=== PATIENT | female | born 1965 | race Caucasian/White ===

== ENCOUNTER 2022-02-08 03:38 | Inpatient (IN) ==
[2022-02-08] MEDS ORDERED: Ondansetron 4 MG/2 ML VIAL IVP PRN (08:32)
[2022-02-08] MEDS ORDERED: Naloxone 0.4 MG/ML INJ IVP PRN (08:32)
[2022-02-08] MEDS ORDERED: Perflutren Lipid Microsphere 1.3 ML in 0.9 % Sodium Chloride 8.7 ML IVP PRN (08:34)
[2022-02-08] MEDS ORDERED: Nitroglycerin 0.4 MG TAB.SUBL SL PRN (08:34)
[2022-02-08] MEDS ORDERED: *HR* Heparin 5,000 UNIT/ML VIAL IVP PRN (08:38)
[2022-02-08 09:05] LABS: Basophils # 0.1 K/mcL (0.0-0.2); Eosinophils # 0.2 K/mcL (0.0-0.6); Eosinophils % 2.5 %; Hematocrit 34.1 % (35.3-44.9); Hemoglobin 11.5 g/dL (11.5-15.4); Immature Granulocytes % 0.4 % (0-4); Lymphocytes # 2.1 K/mcL (0.6-4.6); Lymphocytes % 25.2 %; Mean Corpuscular HGB Conc 33.7 g/dL (31.6-35.5); Mean Corpuscular Hemoglobin 31.5 pg (28.0-33.3); Mean Corpuscular Volume 93.4 fL (83.0-100.0); Mean Platelet Volume 9.8 fL (9.4-12.4); Monocytes # 0.4 K/mcL (0.0-1.3); Monocytes % 4.8 %; Neutrophils # 5.6 K/mcL (1.6-8.9); Platelet Count 275 K/mcL (140-400); Red Blood Count 3.65 M/mcL (3.82-4.97); Red Cell Distribution Width 13.4 % (11.5-14.5); Segmented Neutrophils % 66.1 %; White Blood Count 8.4 K/mcL (4.3-11.1)
[2022-02-08] MEDS: Heparin 25,000UNIT/250ML 1/2NS 25,000 UNIT/250 ML IV.SOLN IVC SCH (09:05)
[2022-02-08 09:12] LABS: Heparin anti-factor XA UFH 0.12 IU/mL (0.30-0.70); INR 1.1; Prothrombin Time 11.9 Seconds (9.4-12.1)
[2022-02-08 09:15] LABS: Activated Partial Thrombo Time 36.3 Seconds (26.0-36.0)
[2022-02-08 09:31] LABS: Alanine Aminotransferase 9 Units/L (7-52); Albumin 3.4 g/dL (3.5-5.7); Albumin/Globulin Ratio 1.1 (1.1-2.2); Alkaline Phosphatase 75 Units/L (34-104); Aspartate Amino Transferase 12 Units/L (13-39); BUN/Creatinine Ratio 16 (6-26); Bilirubin,Total 0.3 mg/dL (0.3-1.0); Blood Urea Nitrogen 9 mg/dL (6-20); Calcium 8.8 mg/dL (8.6-10.3); Carbon Dioxide 24 mEq/L (23-29); Chloride 104 mEq/L (98-107); Chol/HDL Ratio 3.2 (0-4.9); Cholesterol 135 mg/dL (< 200); Globulin 3.2 g/dL (2.4-3.5); Glucose 92 mg/dL (70-105); HDL Cholesterol 42 mg/dL (40-59); LDL Cholesterol,Calculated 55 mg/dL (< 100); Magnesium 1.7 mg/dL (1.6-2.6); Osmolality,Calculated 282 (280-300); Phosphorous 3.5 mg/dL (2.7-4.5); Potassium 3.4 mEq/L (3.5-5.1); Sodium 137 mEq/L (136-145); Total Protein 6.6 g/dL (6.4-8.9); Triglycerides 189 mg/dL (< 150); Troponin I 0.23 ng/mL (< 0.04); eGFR For African Americans > 60 (> 60); eGFR For Non-African Americans > 60 (> 60)
[2022-02-08] MEDS: *HR* Heparin 5,000 UNIT/ML VIAL IVP PRN (09:58)
[2022-02-08] MEDS: Pantoprazole 40 MG VIAL IVP SCH (11:24)
[2022-02-08] MEDS: *HR* OxyCODONE Immed Rel 5 MG TABLET PO PRN ×2 (11:25→20:43)
[2022-02-08] MEDS: Aspirin 81 MG TAB.CHEW PO SCH (11:25)
[2022-02-08] MEDS ORDERED: *HR* OxyCODONE/APAP 5/325 TABLET PO ONE (14:15)
[2022-02-08] MEDS: Morphine Sulfate 2 MG/ML SYRINGE IVP PRN (18:54)
[2022-02-08] MEDS: rOPINIRole 1 MG TABLET PO SCH (20:12)
[2022-02-08] MEDS: Gabapentin 300 MG CAPSULE PO SCH (20:12)
[2022-02-08] MEDS: methocarbamoL 750 MG TABLET PO SCH (20:43)
[2022-02-09] MEDS: *HR* OxyCODONE Immed Rel 5 MG TABLET PO PRN ×3 (06:23→19:48)
[2022-02-09] MEDS: Aspirin 81 MG TAB.CHEW PO SCH (07:33)
[2022-02-09] MEDS: Pantoprazole 40 MG VIAL IVP SCH (07:33)
[2022-02-09] MEDS: methocarbamoL 750 MG TABLET PO SCH ×4 (07:33→21:42)
[2022-02-09] MEDS ORDERED: 0.9 % Sodium Chloride 2,000 ML ONE (12:10)
[2022-02-09] MEDS ORDERED: ISOVUE-370 200 ML INFUS..BTL ONE (12:10)
[2022-02-09] MEDS ORDERED: Nitroglycerin 1,000 MCG/5 ML VIAL IV ONE (12:10)
[2022-02-09] MEDS ORDERED: *HR* Heparin 10,000 UNIT/10 ML VIAL ONE (12:10)
[2022-02-09] MEDS ORDERED: Heparin 1,000 UNITS/500 mL 500 ML ONE (12:10)
[2022-02-09] MEDS ORDERED: *HR* FentaNYL (PF) 100 MCG/2 ML VIAL ONE (12:18)
[2022-02-09] MEDS ORDERED: *HR* Midazolam HCl 2 MG/2 ML VIAL ONE (12:18)
[2022-02-09] MEDS: Heparin 25,000UNIT/250ML 1/2NS 25,000 UNIT/250 ML IV.SOLN IVC SCH (17:19)
[2022-02-09] MEDS: Gabapentin 300 MG CAPSULE PO SCH (21:28)
[2022-02-09] MEDS: rOPINIRole 1 MG TABLET PO SCH (21:28)
[2022-02-09] MEDS: Morphine Sulfate 2 MG/ML SYRINGE IVP PRN (22:29)
[2022-02-10] MEDS: *HR* Heparin 5,000 UNIT/ML VIAL IVP PRN (01:17)
[2022-02-10] MEDS: *HR* OxyCODONE Immed Rel 5 MG TABLET PO PRN ×4 (01:28→21:04)
[2022-02-10 05:30] LABS: Hematocrit 34.8 % (35.3-44.9); Hemoglobin 11.3 g/dL (11.5-15.4); Mean Corpuscular HGB Conc 32.5 g/dL (31.6-35.5); Mean Corpuscular Hemoglobin 30.9 pg (28.0-33.3); Mean Corpuscular Volume 95.1 fL (83.0-100.0); Mean Platelet Volume 10.2 fL (9.4-12.4); Platelet Count 271 K/mcL (140-400); Red Blood Count 3.66 M/mcL (3.82-4.97); Red Cell Distribution Width 13.1 % (11.5-14.5); White Blood Count 10.5 K/mcL (4.3-11.1)
[2022-02-10 05:35] LABS: Estimated Average Glucose 111 mg/dl; Hemoglobin A1C 5.5 %
[2022-02-10 05:47] LABS: BUN/Creatinine Ratio 20 (6-26); Blood Urea Nitrogen 12 mg/dL (6-20); Calcium 8.8 mg/dL (8.6-10.3); Carbon Dioxide 25 mEq/L (23-29); Chloride 105 mEq/L (98-107); Glucose 127 mg/dL (70-105); Magnesium 1.8 mg/dL (1.6-2.6); Osmolality,Calculated 289 (280-300); Potassium 3.7 mEq/L (3.5-5.1); Sodium 139 mEq/L (136-145); eGFR For African Americans > 60 (> 60); eGFR For Non-African Americans > 60 (> 60)
[2022-02-10] MEDS: methocarbamoL 750 MG TABLET PO SCH ×4 (07:20→20:11)
[2022-02-10] MEDS: Aspirin 81 MG TAB.CHEW PO SCH (07:20)
[2022-02-10] MEDS: Pantoprazole 40 MG VIAL IVP SCH (07:21)
[2022-02-10] MEDS: Metoprolol XL (24 HR) Succ 25 MG TAB.ER.24H PO SCH (08:17)
[2022-02-10] MEDS ORDERED: Famotidine 20 MG TABLET PO SCH (09:00)
[2022-02-10] MEDS ORDERED: NON-FORMULARY MEDICATION 1 EACH EACH (Losartan/Hydrochlorothiazide [Losartan-Hctz 100-25 M PO SCH (09:00)
[2022-02-10] MEDS ORDERED: ALPRAZolam 0.25 MG TABLET PO ONE (09:31)
[2022-02-10] MEDS ORDERED: Heparin 1,000 UNITS/500 mL 1,000 ML ONE (13:11)
[2022-02-10] MEDS ORDERED: *HR* Heparin 10,000 UNIT/10 ML VIAL ONE (13:11)
[2022-02-10] MEDS ORDERED: 0.9 % Sodium Chloride 1,000 ML ONE (13:11)
[2022-02-10] MEDS ORDERED: *HR* Midazolam HCl 2 MG/2 ML VIAL ONE (13:21)
[2022-02-10] MEDS ORDERED: *HR* FentaNYL (PF) 100 MCG/2 ML VIAL ONE (13:21)
[2022-02-10] MEDS ORDERED: Ondansetron 4 MG/2 ML VIAL ONE (14:15)
[2022-02-10] MEDS: Dexmedetomidine HCl 400 MCG/100 ML MLS IVC SCH (15:13)
[2022-02-10] MEDS: Heparin 25,000UNIT/250ML 1/2NS 25,000 UNIT/250 ML IV.SOLN IVC SCH (20:10)
[2022-02-10] MEDS: Chlorhexidine Rinse 15 ML MOUTHWASH MM SCH (20:11)
[2022-02-10] MEDS: Gabapentin 300 MG CAPSULE PO SCH (20:11)
[2022-02-10] MEDS: rOPINIRole 1 MG TABLET PO SCH (20:11)
[2022-02-10 21:06] LABS: Influenza A PCR Negative (Negative); Influenza B PCR Negative (Negative); Resp. Syncytial Virus PCR Negative (Negative); SARS-CoV-2 by PCR (In House) Negative (Negative)
[2022-02-10 21:09] LABS: Basophils # 0.1 K/mcL (0.0-0.2); Basophils % 0.7 %; Eosinophils # 0.1 K/mcL (0.0-0.6); Eosinophils % 0.9 %; Hematocrit 32.5 % (35.3-44.9); Hemoglobin 10.8 g/dL (11.5-15.4); Immature Granulocytes % 0.4 % (0-4); Lymphocytes % 20.2 %; Mean Corpuscular HGB Conc 33.2 g/dL (31.6-35.5); Mean Corpuscular Hemoglobin 31.5 pg (28.0-33.3); Mean Corpuscular Volume 94.8 fL (83.0-100.0); Mean Platelet Volume 9.8 fL (9.4-12.4); Monocytes # 0.8 K/mcL (0.0-1.3); Monocytes % 7.7 %; Neutrophils # 6.9 K/mcL (1.6-8.9); Platelet Count 243 K/mcL (140-400); Red Blood Count 3.43 M/mcL (3.82-4.97); Red Cell Distribution Width 13.2 % (11.5-14.5); Segmented Neutrophils % 70.1 %; White Blood Count 9.8 K/mcL (4.3-11.1)
[2022-02-10 21:17] LABS: INR 1.2; Prothrombin Time 12.9 Seconds (9.4-12.1)
[2022-02-10 21:20] LABS: Activated Partial Thrombo Time 74.6 Seconds (26.0-36.0)
[2022-02-10 21:26] LABS: BUN/Creatinine Ratio 19 (6-26); Blood Urea Nitrogen 11 mg/dL (6-20); Calcium 8.7 mg/dL (8.6-10.3); Carbon Dioxide 23 mEq/L (23-29); Chloride 105 mEq/L (98-107); Chol/HDL Ratio 3.4 (0-4.9); Cholesterol 158 mg/dL (< 200); Glucose 129 mg/dL (70-105); HDL Cholesterol 47 mg/dL (40-59); LDL Cholesterol,Calculated 61 mg/dL (< 100); Osmolality,Calculated 283 (280-300); Potassium 3.5 mEq/L (3.5-5.1); Sodium 136 mEq/L (136-145); Triglycerides 251 mg/dL (< 150); eGFR For African Americans > 60 (> 60); eGFR For Non-African Americans > 60 (> 60)
[2022-02-11] MEDS: *HR* OxyCODONE Immed Rel 5 MG TABLET PO PRN ×2 (03:34→10:40)
[2022-02-11] MEDS ORDERED: Aspirin 81 MG TAB.CHEW PO ONE ×2 (06:00→11:00)
[2022-02-11] MEDS ORDERED: Clindamycin 900 MG/50 ML 900 MG/50 ML IV.SOLN IVPB SCH ×3 (06:00→17:00)
[2022-02-11 06:01] LABS: Basophils % 0.5 %; Eosinophils # 0.1 K/mcL (0.0-0.6); Eosinophils % 1.2 %; Hematocrit 32.6 % (35.3-44.9); Hemoglobin 10.5 g/dL (11.5-15.4); Immature Granulocytes % 0.2 % (0-4); Lymphocytes % 23.4 %; Mean Corpuscular HGB Conc 32.2 g/dL (31.6-35.5); Mean Corpuscular Hemoglobin 30.5 pg (28.0-33.3); Mean Corpuscular Volume 94.8 fL (83.0-100.0); Mean Platelet Volume 10.2 fL (9.4-12.4); Monocytes # 0.7 K/mcL (0.0-1.3); Monocytes % 8.6 %; Neutrophils # 5.6 K/mcL (1.6-8.9); Platelet Count 227 K/mcL (140-400); Red Blood Count 3.44 M/mcL (3.82-4.97); Red Cell Distribution Width 13.1 % (11.5-14.5); Segmented Neutrophils % 66.1 %; White Blood Count 8.4 K/mcL (4.3-11.1)
[2022-02-11 06:36] LABS: Alanine Aminotransferase 7 Units/L (7-52); Albumin 3.4 g/dL (3.5-5.7); Albumin/Globulin Ratio 1.2 (1.1-2.2); Alkaline Phosphatase 66 Units/L (34-104); Aspartate Amino Transferase 11 Units/L (13-39); BUN/Creatinine Ratio 19 (6-26); Bilirubin,Total 0.2 mg/dL (0.3-1.0); Blood Urea Nitrogen 11 mg/dL (6-20); Calcium 8.9 mg/dL (8.6-10.3); Carbon Dioxide 24 mEq/L (23-29); Chloride 103 mEq/L (98-107); Globulin 2.9 g/dL (2.4-3.5); Glucose 117 mg/dL (70-105); Magnesium 1.9 mg/dL (1.6-2.6); Osmolality,Calculated 286 (280-300); Phosphorous 4.4 mg/dL (2.7-4.5); Potassium 3.8 mEq/L (3.5-5.1); Sodium 138 mEq/L (136-145); Total Protein 6.3 g/dL (6.4-8.9); eGFR For African Americans > 60 (> 60); eGFR For Non-African Americans > 60 (> 60)
[2022-02-11] MEDS ORDERED: Buckersberg's Blood Cardioplegia PF SCH (07:00)
[2022-02-11] MEDS ORDERED: del Nido Cardioplegia Solution PF SCH (07:00)
[2022-02-11] MEDS ORDERED: Norepinephrine 4 MG in 0.9 % Sodium Chloride 250 ML IVC PRN (07:00)
[2022-02-11] MEDS ORDERED: Heparin 15,000 UNIT in 0.9 % Sodium Chloride 500 ML IV ONE (07:00)
[2022-02-11] MEDS: Aspirin 81 MG TAB.CHEW PO SCH (07:51)
[2022-02-11] MEDS: Metoprolol XL (24 HR) Succ 25 MG TAB.ER.24H PO SCH (07:52)
[2022-02-11] MEDS: Pantoprazole 40 MG VIAL IVP SCH (08:09)
[2022-02-11] MEDS: methocarbamoL 750 MG TABLET PO SCH ×4 (08:09→21:08)
[2022-02-11] MEDS: Chlorhexidine Rinse 15 ML MOUTHWASH MM SCH ×2 (08:11→21:43)
[2022-02-11] MEDS: Heparin 25,000UNIT/250ML 1/2NS 25,000 UNIT/250 ML IV.SOLN IVC SCH (08:36)
[2022-02-11] MEDS ORDERED: Albumin Human 5% 75.0 GM/1,500 ML IV.SOLN ONE (09:46)
[2022-02-11] MEDS ORDERED: Heparin 1,000 UNITS/500 mL 500 ML ONE (10:50)
[2022-02-11] MEDS ORDERED: Vancomycin (wt based) 1,000 MG VIAL IVPB ONE (11:00)
[2022-02-11] MEDS ORDERED: Clindamycin 900 MG/50 ML 900 MG/50 ML IV.SOLN IVPB ONE ×2 (11:00→17:00)
[2022-02-11] MEDS ORDERED: Tranexamic Acid 1,000 MG/10 ML VIAL IR ONE (11:09)
[2022-02-11] MEDS ORDERED: Mannitol 25% vial 12.5 GM/50 ML VIAL IVPB ONE (11:09)
[2022-02-11] MEDS ORDERED: Albumin Human 25% 25 GM/100 ML IV.SOLN IVPB ONE (11:09)
[2022-02-11] MEDS ORDERED: *HR* Magnesium Sulfate 2 GM/50 ML PIGGYBACK IVPB ONE (11:09)
[2022-02-11] MEDS ORDERED: *HR* Phenylephrine 10 MG/ML VIAL IVC ONE (11:09)
[2022-02-11] MEDS ORDERED: *HR* Heparin 10,000 UNIT/10 ML VIAL IR ONE (11:09)
[2022-02-11] MEDS ORDERED: CeFAZolin Syr 2,000MG/20 ML 2,000 MG/20 ML SYRINGE IVPB ONE ×2 (12:00→14:00)
[2022-02-11] MEDS: Dexmedetomidine HCl 400 MCG/100 ML MLS IVC SCH ×2 (13:18→21:35)
[2022-02-11] MEDS ORDERED: NiCARdipine 2.5 MG/10 ML Syringe IVPB ONE (13:24)
[2022-02-11] MEDS ORDERED: DOBUTamine 1,000 MG/250 ML BAG ONE (13:24)
[2022-02-11] MEDS ORDERED: *HR* Midazolam HCl 5 MG/5 ML VIAL IVP ONE ×2 (13:25→17:32)
[2022-02-11] MEDS ORDERED: *HR* FentaNYL (PF) 1,000 MCG/20 ML VIAL ONE (13:25)
[2022-02-11] MEDS ORDERED: *HR* Rocuronium Bromide 50 MG/5 ML VIAL ONE ×3 (14:41→19:34)
[2022-02-11] MEDS ORDERED: *HR* Magnesium Sulfate 1 GM/2 ML VIAL ONE (14:42)
[2022-02-11] MEDS ORDERED: *HR* Propofol 200 MG/20 ML VIAL IVP ONE (14:42)
[2022-02-11] MEDS ORDERED: Famotidine 20 MG/2 ML VIAL ONE (14:42)
[2022-02-11] MEDS ORDERED: Tranexamic Acid 1,000 MG/10 ML VIAL ONE (14:43)
[2022-02-11] MEDS ORDERED: Lidocaine 2% Syringe 100 MG/5 ML ONE (14:45)
[2022-02-11] MEDS ORDERED: Papaverine 60 MG/2 ML VIAL IVP ONE (16:00)
[2022-02-11 17:08] LABS: ABG Base Excess -2 mEq/L (-2 to 3); ABG Chloride 106 mEq/L (98-107); ABG Glucose 94 mg/dL (60-95); ABG HCO3 22 mEq/L (21-27); ABG Ionized Calcium 1.23 mmol/L (1.15-1.35); ABG Oxygen Saturation 100 % (95-98); ABG PCO2 37 mmHg (35-45); ABG PH 7.39 pH Units (7.32-7.45); ABG PO2 437 mmHg (85-104); ABG TCO2 24 mEq/L (20-26)
[2022-02-11 17:33] LABS: ABG Base Excess -1 mEq/L (-2 to 3); ABG Chloride 106 mEq/L (98-107); ABG Glucose 112 mg/dL (60-95); ABG HCO3 25 mEq/L (21-27); ABG Oxygen Saturation 100 % (95-98); ABG PCO2 44 mmHg (35-45); ABG PH 7.36 pH Units (7.32-7.45); ABG PO2 535 mmHg (85-104); ABG TCO2 26 mEq/L (20-26)
[2022-02-11 17:52] LABS: ABG Base Excess -7 mEq/L (-2 to 3); ABG Chloride 99 mEq/L (98-107); ABG Glucose 155 mg/dL (60-95); ABG HCO3 19 mEq/L (21-27); ABG Ionized Calcium 0.95 mmol/L (1.15-1.35); ABG Oxygen Saturation 100 % (95-98); ABG PCO2 35 mmHg (35-45); ABG PH 7.33 pH Units (7.32-7.45); ABG PO2 547 mmHg (85-104); ABG TCO2 20 mEq/L (20-26)
[2022-02-11] MEDS ORDERED: Calcium Gluconate 1,000 MG/10 ML VIAL ONE (17:57)
[2022-02-11] MEDS ORDERED: Protamine Sulfate 250 MG/25 ML VIAL IVP ONE (17:57)
[2022-02-11] MEDS ORDERED: Calcium Gluconate 1gm/50mL 1 GM/50 ML BAG IVPB PRN (18:00)
[2022-02-11] MEDS ORDERED: Acetaminophen 325 MG TABLET PO PRN (18:00)
[2022-02-11] MEDS ORDERED: *HR* FentaNYL (PF) 100 MCG/2 ML VIAL IVP PRN (18:00)
[2022-02-11] MEDS ORDERED: Potassium Chloride 40 MEQ/200 ML BAG IVPB PRN (18:00)
[2022-02-11] MEDS ORDERED: *HR* Dextrose 50 % in Water (Syg) 50 ML SYRINGE IVP PRN (18:00)
[2022-02-11] MEDS ORDERED: Insulin Regular, Human 100 UNIT/ML IV PRN (18:00)
[2022-02-11 18:07] LABS: ABG Base Excess 1 mEq/L (-2 to 3); ABG Chloride 99 mEq/L (98-107); ABG Glucose 187 mg/dL (60-95); ABG HCO3 25 mEq/L (21-27); ABG Ionized Calcium 1.03 mmol/L (1.15-1.35); ABG Oxygen Saturation 100 % (95-98); ABG PCO2 37 mmHg (35-45); ABG PH 7.44 pH Units (7.32-7.45); ABG PO2 441 mmHg (85-104); ABG TCO2 26 mEq/L (20-26)
[2022-02-11 18:37] LABS: ABG Base Excess -1 mEq/L (-2 to 3); ABG Chloride 104 mEq/L (98-107); ABG Glucose 155 mg/dL (60-95); ABG HCO3 24 mEq/L (21-27); ABG Ionized Calcium 0.97 mmol/L (1.15-1.35); ABG Oxygen Saturation 100 % (95-98); ABG PCO2 41 mmHg (35-45); ABG PH 7.38 pH Units (7.32-7.45); ABG PO2 611 mmHg (85-104); ABG TCO2 25 mEq/L (20-26)
[2022-02-11] MEDS ORDERED: *HR* FentaNYL (PF) 250 MCG/5 ML VIAL ONE (18:57)
[2022-02-11] MEDS ORDERED: Vancomycin (wt based) 1,000 MG VIAL IVPB SCH (19:00)
[2022-02-11 19:05] LABS: ABG Base Excess 0 mEq/L (-2 to 3); ABG Chloride 105 mEq/L (98-107); ABG Glucose 163 mg/dL (60-95); ABG HCO3 25 mEq/L (21-27); ABG Ionized Calcium 1.05 mmol/L (1.15-1.35); ABG Oxygen Saturation 100 % (95-98); ABG PCO2 43 mmHg (35-45); ABG PH 7.38 pH Units (7.32-7.45); ABG PO2 551 mmHg (85-104); ABG TCO2 26 mEq/L (20-26)
[2022-02-11] MEDS ORDERED: EPINEPHrine 1 MG/ML VIAL ONE (19:20)
[2022-02-11 19:38] LABS: ABG Base Excess 0 mEq/L (-2 to 3); ABG Chloride 104 mEq/L (98-107); ABG Glucose 179 mg/dL (60-95); ABG HCO3 25 mEq/L (21-27); ABG Ionized Calcium 1.25 mmol/L (1.15-1.35); ABG Oxygen Saturation 100 % (95-98); ABG PCO2 43 mmHg (35-45); ABG PH 7.37 pH Units (7.32-7.45); ABG PO2 600 mmHg (85-104); ABG TCO2 26 mEq/L (20-26)
[2022-02-11] MEDS ORDERED: Furosemide 40 MG/4 ML VIAL ONE (19:41)
[2022-02-11 19:45] LABS: ABG Base Excess -5 mEq/L (-2 to 3); ABG Chloride 108 mEq/L (98-107); ABG Glucose 215 mg/dL (60-95); ABG HCO3 20 mEq/L (21-27); ABG Oxygen Saturation 100 % (95-98); ABG PCO2 34 mmHg (35-45); ABG PH 7.38 pH Units (7.32-7.45); ABG PO2 188 mmHg (85-104); ABG TCO2 21 mEq/L (20-26)
[2022-02-11] MEDS: EPINEPHrine 5 MG in D5% in Water 250 ML IVC SCH (20:30)
[2022-02-11] MEDS: DOBUTamine 1,000 MG/250 ML BAG IVC SCH (20:30)
[2022-02-11 20:58] LABS: Basophils # 0.1 K/mcL (0.0-0.2); Basophils % 0.5 %; Eosinophils % 0.2 %; Hematocrit 38.3 % (35.3-44.9); Lymphocytes # 1.6 K/mcL (0.6-4.6); Lymphocytes % 8.7 %; Mean Corpuscular HGB Conc 32.6 g/dL (31.6-35.5); Mean Corpuscular Hemoglobin 30.5 pg (28.0-33.3); Mean Corpuscular Volume 93.4 fL (83.0-100.0); Monocytes # 0.9 K/mcL (0.0-1.3); Monocytes % 4.6 %; Neutrophils # 16.1 K/mcL (1.6-8.9); Platelet Count 160 K/mcL (140-400); Red Cell Distribution Width 13.1 % (11.5-14.5)
[2022-02-11 21:02] LABS: Hemoglobin 12.5 g/dL (11.5-15.4); White Blood Count 18.9 K/mcL (4.3-11.1)
[2022-02-11 21:03] LABS: INR 1.3
[2022-02-11] MEDS: Albumin Human 5% 12.5 GM/250 ML IV.SOLN IVPB PRN ×3 (21:03→22:36)
[2022-02-11 21:07] LABS: ABG Base Excess -4 mEq/L (-2 to 3); ABG HCO3 23 mEq/L (21-27); ABG Oxygen Saturation 94 % (95-98); ABG PCO2 46 mmHg (35-45); ABG PO2 76 mmHg (85-104); ABG TCO2 24 mEq/L (20-26); Blood Gas Modality ASSIST CONTROL; Blood Gas VT 500 cc
[2022-02-11] MEDS: Gabapentin 300 MG CAPSULE PO SCH (21:07)
[2022-02-11] MEDS: rOPINIRole 1 MG TABLET PO SCH (21:07)
[2022-02-11 21:08] LABS: Activated Partial Thrombo Time 31.7 Seconds (26.0-36.0)
[2022-02-11 21:17] LABS: BUN/Creatinine Ratio 16 (6-26); Blood Urea Nitrogen 12 mg/dL (6-20); Calcium 8.6 mg/dL (8.6-10.3); Carbon Dioxide 22 mEq/L (23-29); Chloride 104 mEq/L (98-107); Glucose 252 mg/dL (70-105); Magnesium 2.9 mg/dL (1.6-2.6); Osmolality,Calculated 296 (280-300); Potassium 3.6 mEq/L (3.5-5.1); Sodium 139 mEq/L (136-145); eGFR For African Americans > 60 (> 60); eGFR For Non-African Americans > 60 (> 60)
[2022-02-11] MEDS: FentaNYL (PF) 1,000 MCG/100 ML IV.SOLN IVC SCH (21:30)
[2022-02-11] MEDS: Norepinephrine 4 MG/254 ML IV.SOLN IVC SCH (21:46)
[2022-02-11] MEDS: Vasopressin 40 UNIT in D5% in Water 100 ML IVC SCH (21:49)
[2022-02-11] MEDS: Clindamycin 900 MG/50 ML 900 MG/50 ML IV.SOLN IVPB SCH (23:52)
[2022-02-12] MEDS: FentaNYL (PF) 1,000 MCG/100 ML IV.SOLN IVC SCH ×2 (01:17→05:41)
[2022-02-12 01:53] LABS: ABG Base Excess 1 mEq/L (-2 to 3); ABG HCO3 27 mEq/L (21-27); ABG Oxygen Saturation 99 % (95-98); ABG PCO2 50 mmHg (35-45); ABG PH 7.35 pH Units (7.32-7.45); ABG PO2 154 mmHg (85-104); ABG TCO2 29 mEq/L (20-26); Blood Gas Modality ASSIST CONTROL; Blood Gas VT 500 cc
[2022-02-12 04:05] LABS: Immature Granulocytes % 0.4 % (0-4)
[2022-02-12 04:07] LABS: Basophils % 0.3 %; Hematocrit 28.5 % (35.3-44.9); Hemoglobin 9.6 g/dL (11.5-15.4); Immature Platelets 6.2 % (1.1-6.1); Lymphocytes # 0.6 K/mcL (0.6-4.6); Lymphocytes % 6.1 %; Mean Corpuscular HGB Conc 33.7 g/dL (31.6-35.5); Mean Corpuscular Hemoglobin 30.9 pg (28.0-33.3); Mean Corpuscular Volume 91.6 fL (83.0-100.0); Mean Platelet Volume 10.3 fL (9.4-12.4); Monocytes # 0.8 K/mcL (0.0-1.3); Neutrophils # 7.8 K/mcL (1.6-8.9); Platelet Count 110 K/mcL (140-400); Red Blood Count 3.11 M/mcL (3.82-4.97); Red Cell Distribution Width 13.7 % (11.5-14.5); Segmented Neutrophils % 84.2 %; White Blood Count 9.3 K/mcL (4.3-11.1)
[2022-02-12 04:09] LABS: VBG Ionized Calcium 1.17 mmol/L (1.15-1.35)
[2022-02-12 04:14] LABS: ABG Base Excess 0 mEq/L (-2 to 3); ABG HCO3 26 mEq/L (21-27); ABG Oxygen Saturation 98 % (95-98); ABG PCO2 47 mmHg (35-45); ABG PH 7.34 pH Units (7.32-7.45); ABG PO2 120 mmHg (85-104); ABG TCO2 27 mEq/L (20-26); Blood Gas Modality ASSIST CONTROL; Blood Gas VT 500 cc
[2022-02-12 04:18] LABS: BUN/Creatinine Ratio 19 (6-26); Blood Urea Nitrogen 15 mg/dL (6-20); Calcium 8.7 mg/dL (8.6-10.3); Carbon Dioxide 25 mEq/L (23-29); Chloride 108 mEq/L (98-107); Glucose 136 mg/dL (70-105); INR 1.2; Magnesium 2.5 mg/dL (1.6-2.6); Osmolality,Calculated 291 (280-300); Prothrombin Time 13.7 Seconds (9.4-12.1); Sodium 139 mEq/L (136-145); eGFR For African Americans > 60 (> 60); eGFR For Non-African Americans > 60 (> 60)
[2022-02-12 04:20] LABS: Activated Partial Thrombo Time 36.4 Seconds (26.0-36.0)
[2022-02-12] MEDS: Albumin Human 5% 12.5 GM/250 ML IV.SOLN IVPB PRN ×3 (04:51→16:16)
[2022-02-12] MEDS: Dexmedetomidine HCl 400 MCG/100 ML MLS IVC SCH ×3 (05:43→22:54)
[2022-02-12] MEDS: Pantoprazole 40 MG VIAL IVP SCH (07:38)
[2022-02-12] MEDS: Chlorhexidine Rinse 15 ML MOUTHWASH MM SCH ×2 (07:39→20:43)
[2022-02-12] MEDS: *HR* OxyCODONE/APAP 5/325 TABLET PO PRN ×4 (07:39→23:50)
[2022-02-12] MEDS: Aspirin 81 MG TAB.CHEW PO SCH (07:39)
[2022-02-12] MEDS: methocarbamoL 750 MG TABLET PO SCH ×4 (07:40→20:42)
[2022-02-12] MEDS: Clindamycin 900 MG/50 ML 900 MG/50 ML IV.SOLN IVPB SCH ×3 (07:41→23:50)
[2022-02-12] MEDS ORDERED: del Nido Cardioplegia Solution PF ONE (08:00)
[2022-02-12 08:14] LABS: ABG Base Excess -1 mEq/L (-2 to 3); ABG HCO3 24 mEq/L (21-27); ABG Oxygen Saturation 97 % (95-98); ABG PCO2 42 mmHg (35-45); ABG PH 7.37 pH Units (7.32-7.45); ABG PO2 92 mmHg (85-104); ABG TCO2 26 mEq/L (20-26); Blood Gas Modality ASSIST CONTROL; Blood Gas VT 500 cc
[2022-02-12 08:56] LABS: ABG Base Excess -1 mEq/L (-2 to 3); ABG HCO3 24 mEq/L (21-27); ABG Oxygen Saturation 98 % (95-98); ABG PCO2 41 mmHg (35-45); ABG PH 7.37 pH Units (7.32-7.45); ABG PO2 101 mmHg (85-104); ABG TCO2 25 mEq/L (20-26); Blood Gas Modality CPAP/PS; Blood Gas Pressure Support 10 cm H2O
[2022-02-12] MEDS ORDERED: Aspirin Enteric Coated 81 MG Tablet PO SCH (09:00)
[2022-02-12] MEDS: Heparin 25,000UNIT/250ML 1/2NS 25,000 UNIT/250 ML IV.SOLN IVC SCH (09:21)
[2022-02-12] MEDS ORDERED: *HR* Dextrose 50 % in Water (Syg) 50 ML SYRINGE IVP PRN (10:19)
[2022-02-12] MEDS ORDERED: D5% in Water 1,000 ML IVC PRN (10:19)
[2022-02-12] MEDS ORDERED: Dextrose 4 GM Chewable Tablets PO PRN ×2 (10:19)
[2022-02-12] MEDS: Insulin LISPRO 300 UNITS/3 ML VIAL SUBQ SCH ×3 (11:31→20:42)
[2022-02-12] MEDS: Metoprolol XL (24 HR) Succ 25 MG TAB.ER.24H PO SCH (11:32)
[2022-02-12] MEDS: rOPINIRole 0.25 MG TABLET PO SCH (12:08)
[2022-02-12] MEDS: Gabapentin 300 MG CAPSULE PO SCH ×2 (12:08→20:42)
[2022-02-12] MEDS: *HR* OxyCODONE Immed Rel 5 MG TABLET PO PRN ×2 (14:55→20:16)
[2022-02-12] MEDS: Norepinephrine 4 MG/254 ML IV.SOLN IVC SCH (16:01)
[2022-02-12] MEDS: Vasopressin 40 UNIT in D5% in Water 100 ML IVC SCH (17:22)
[2022-02-12] MEDS: DOBUTamine 1,000 MG/250 ML BAG IVC SCH (17:46)
[2022-02-12] MEDS ORDERED: Furosemide 40 MG/4 ML VIAL IVP ONE (19:13)
[2022-02-12] MEDS: rOPINIRole 1 MG TABLET PO SCH (20:42)
[2022-02-12] MEDS: EPINEPHrine 5 MG in D5% in Water 250 ML IVC SCH (20:42)
[2022-02-13] MEDS: *HR* OxyCODONE Immed Rel 5 MG TABLET PO PRN ×3 (02:26→20:27)
[2022-02-13 04:00] LABS: Basophils % 0.3 %; Mean Platelet Volume 11.3 fL (9.4-12.4)
[2022-02-13 04:02] LABS: Hematocrit 23.4 % (35.3-44.9); Immature Granulocytes % 0.5 % (0-4); Immature Platelets 8.3 % (1.1-6.1); Lymphocytes % 10.3 %; Mean Corpuscular HGB Conc 34.2 g/dL (31.6-35.5); Mean Corpuscular Volume 90.7 fL (83.0-100.0); Monocytes # 0.9 K/mcL (0.0-1.3); Monocytes % 9.1 %; Red Blood Count 2.58 M/mcL (3.82-4.97); Red Cell Distribution Width 13.4 % (11.5-14.5); Segmented Neutrophils % 79.8 %; White Blood Count 9.6 K/mcL (4.3-11.1)
[2022-02-13 04:04] LABS: BUN/Creatinine Ratio 27 (6-26); Blood Urea Nitrogen 15 mg/dL (6-20); Calcium 8.4 mg/dL (8.6-10.3); Carbon Dioxide 25 mEq/L (23-29); Chloride 96 mEq/L (98-107); Glucose 165 mg/dL (70-105); Magnesium 1.7 mg/dL (1.6-2.6); Osmolality,Calculated 271 (280-300); Potassium 3.8 mEq/L (3.5-5.1); Sodium 128 mEq/L (136-145); eGFR For African Americans > 60 (> 60); eGFR For Non-African Americans > 60 (> 60)
[2022-02-13 04:11] LABS: Neutrophils # 7.7 K/mcL (1.6-8.9); Platelet Count 90 K/mcL (140-400)
[2022-02-13] MEDS: *HR* OxyCODONE/APAP 5/325 TABLET PO PRN ×4 (04:43→22:11)
[2022-02-13] MEDS: Dexmedetomidine HCl 400 MCG/100 ML MLS IVC SCH ×2 (08:37→17:23)
[2022-02-13] MEDS: Clindamycin 900 MG/50 ML 900 MG/50 ML IV.SOLN IVPB SCH ×3 (08:38→23:24)
[2022-02-13] MEDS: rOPINIRole 0.25 MG TABLET PO SCH (08:39)
[2022-02-13] MEDS: Pantoprazole 40 MG VIAL IVP SCH (08:39)
[2022-02-13] MEDS: methocarbamoL 750 MG TABLET PO SCH ×4 (08:40→20:26)
[2022-02-13] MEDS: Aspirin 81 MG TAB.CHEW PO SCH (08:40)
[2022-02-13] MEDS: Chlorhexidine Rinse 15 ML MOUTHWASH MM SCH ×2 (08:40→20:01)
[2022-02-13] MEDS: Gabapentin 300 MG CAPSULE PO SCH ×2 (08:41→20:26)
[2022-02-13] MEDS: Metoprolol XL (24 HR) Succ 25 MG TAB.ER.24H PO SCH (08:42)
[2022-02-13] MEDS: Insulin LISPRO 300 UNITS/3 ML VIAL SUBQ SCH ×4 (09:09→20:21)
[2022-02-13] MEDS: Norepinephrine 4 MG/254 ML IV.SOLN IVC SCH (15:19)
[2022-02-13] MEDS: DOBUTamine 1,000 MG/250 ML BAG IVC SCH (17:17)
[2022-02-13] MEDS: rOPINIRole 1 MG TABLET PO SCH (20:27)
[2022-02-14] MEDS: *HR* OxyCODONE/APAP 5/325 TABLET PO PRN ×4 (02:11→18:40)
[2022-02-14 04:01] LABS: Mean Corpuscular HGB Conc 33.6 g/dL (31.6-35.5); Monocytes % 7.5 %
[2022-02-14 04:03] LABS: Eosinophils % 0.3 %; Hematocrit 24.1 % (35.3-44.9); Hemoglobin 8.1 g/dL (11.5-15.4); Immature Granulocytes % 0.4 % (0-4); Immature Platelets 7.5 % (1.1-6.1); Lymphocytes % 10.2 %; Mean Corpuscular Hemoglobin 30.8 pg (28.0-33.3); Mean Corpuscular Volume 91.6 fL (83.0-100.0); Mean Platelet Volume 11.3 fL (9.4-12.4); Neutrophils # 9.9 K/mcL (1.6-8.9); Platelet Count 121 K/mcL (140-400); Red Blood Count 2.63 M/mcL (3.82-4.97); Red Cell Distribution Width 13.2 % (11.5-14.5); Segmented Neutrophils % 81.3 %; White Blood Count 12.2 K/mcL (4.3-11.1)
[2022-02-14 04:04] LABS: Basophils % 0.3 %; Monocytes # 0.9 K/mcL (0.0-1.3)
[2022-02-14 04:07] LABS: Lymphocytes # 1.2 K/mcL (0.6-4.6)
[2022-02-14 04:20] LABS: BUN/Creatinine Ratio 19 (6-26); Blood Urea Nitrogen 13 mg/dL (6-20); Calcium 8.8 mg/dL (8.6-10.3); Carbon Dioxide 26 mEq/L (23-29); Chloride 98 mEq/L (98-107); Glucose 136 mg/dL (70-105); Osmolality,Calculated 276 (280-300); Potassium 3.6 mEq/L (3.5-5.1); Sodium 132 mEq/L (136-145); eGFR For African Americans > 60 (> 60); eGFR For Non-African Americans > 60 (> 60)
[2022-02-14] MEDS ORDERED: Potassium Chloride Elixir 20 MEQ/15 ML UDC PO ONE (04:50)
[2022-02-14] MEDS: Dexmedetomidine HCl 400 MCG/100 ML MLS IVC SCH ×2 (05:13→12:03)
[2022-02-14] MEDS: *HR* OxyCODONE Immed Rel 5 MG TABLET PO PRN ×3 (05:48→20:53)
[2022-02-14] MEDS: Vasopressin 40 UNIT in D5% in Water 100 ML IVC SCH (07:52)
[2022-02-14] MEDS: EPINEPHrine 5 MG in D5% in Water 250 ML IVC SCH (07:52)
[2022-02-14] MEDS: Insulin LISPRO 300 UNITS/3 ML VIAL SUBQ SCH ×4 (07:54→20:47)
[2022-02-14] MEDS: Chlorhexidine Rinse 15 ML MOUTHWASH MM SCH ×2 (09:28→20:40)
[2022-02-14] MEDS: methocarbamoL 750 MG TABLET PO SCH ×4 (09:29→20:38)
[2022-02-14] MEDS: rOPINIRole 0.25 MG TABLET PO SCH (09:29)
[2022-02-14] MEDS: Aspirin 81 MG TAB.CHEW PO SCH (09:31)
[2022-02-14] MEDS: Metoprolol XL (24 HR) Succ 25 MG TAB.ER.24H PO SCH (09:31)
[2022-02-14] MEDS: Gabapentin 300 MG CAPSULE PO SCH ×2 (09:31→20:38)
[2022-02-14] MEDS: Pantoprazole 40 MG VIAL IVP SCH (09:32)
[2022-02-14] MEDS ORDERED: *HR* Dextrose 50 % in Water (Syg) 50 ML SYRINGE IVP PRN (10:34)
[2022-02-14] MEDS ORDERED: D5% in Water 1,000 ML IVC PRN (10:34)
[2022-02-14] MEDS ORDERED: Acetaminophen 325 MG TABLET PO PRN (10:34)
[2022-02-14] MEDS ORDERED: Dextrose 4 GM Chewable Tablets PO PRN ×2 (10:34)
[2022-02-14] MEDS ORDERED: Naloxone 0.4 MG/ML INJ IVP PRN (10:34)
[2022-02-14] MEDS ORDERED: Ondansetron 4 MG/2 ML VIAL IVP PRN (10:34)
[2022-02-14] MEDS ORDERED: Furosemide 40 MG/4 ML VIAL IVP ONE (12:35)
[2022-02-14] MEDS ORDERED: Furosemide 40 MG TABLET PO SCH (17:00)
[2022-02-14] MEDS: *HR* Heparin 5,000 UNIT/ML VIAL SQ SCH (18:00)
[2022-02-14] MEDS: rOPINIRole 1 MG TABLET PO SCH (20:37)
[2022-02-15] MEDS: *HR* OxyCODONE/APAP 5/325 TABLET PO PRN ×4 (02:44→20:00)
[2022-02-15] MEDS ORDERED: Benzonatate 100 MG CAPSULE PO PRN (04:02)
[2022-02-15] MEDS: *HR* OxyCODONE Immed Rel 5 MG TABLET PO PRN ×3 (05:42→18:06)
[2022-02-15] MEDS: *HR* Heparin 5,000 UNIT/ML VIAL SQ SCH ×2 (05:42→18:57)
[2022-02-15 07:57] LABS: ABG Base Excess -5 mEq/L (-2 to 3); ABG Chloride 106 mEq/L (98-107); ABG Glucose 240 mg/dL (60-95); ABG HCO3 20 mEq/L (21-27); ABG Ionized Calcium 1.34 mmol/L (1.15-1.35); ABG Oxygen Saturation 99 % (95-98); ABG PCO2 36 mmHg (35-45); ABG PH 7.37 pH Units (7.32-7.45); ABG PO2 154 mmHg (85-104); ABG TCO2 22 mEq/L (20-26)
[2022-02-15] MEDS ORDERED: Pantoprazole 40 MG VIAL IVP SCH (09:00)
[2022-02-15] MEDS: Gabapentin 300 MG CAPSULE PO SCH ×2 (09:12→19:45)
[2022-02-15] MEDS: rOPINIRole 0.25 MG TABLET PO SCH (09:12)
[2022-02-15] MEDS: Metoprolol XL (24 HR) Succ 25 MG TAB.ER.24H PO SCH (09:12)
[2022-02-15] MEDS: methocarbamoL 750 MG TABLET PO SCH ×4 (09:13→19:46)
[2022-02-15] MEDS: Furosemide 40 MG TABLET PO SCH (09:13)
[2022-02-15] MEDS: Chlorhexidine Rinse 15 ML MOUTHWASH MM SCH ×2 (09:13→19:45)
[2022-02-15] MEDS: Aspirin 81 MG TAB.CHEW PO SCH (09:13)
[2022-02-15] MEDS: Spironolactone 12.5 MG TABLET PO SCH (09:14)
[2022-02-15] MEDS: lisinopriL 5 MG TABLET PO SCH (09:14)
[2022-02-15] MEDS: Insulin LISPRO 300 UNITS/3 ML VIAL SUBQ SCH ×4 (09:14→21:39)
[2022-02-15] MEDS: Dexmedetomidine HCl 400 MCG/100 ML MLS IVC SCH (10:33)
[2022-02-15 15:06] LABS: Hematocrit 31.5 % (35.3-44.9); Mean Corpuscular HGB Conc 32.1 g/dL (31.6-35.5); Mean Corpuscular Hemoglobin 30.1 pg (28.0-33.3); Mean Platelet Volume 10.7 fL (9.4-12.4); Platelet Count 242 K/mcL (140-400); Red Blood Count 3.35 M/mcL (3.82-4.97); Red Cell Distribution Width 13.7 % (11.5-14.5); White Blood Count 12.5 K/mcL (4.3-11.1)
[2022-02-15 15:14] LABS: Hemoglobin 10.1 g/dL (11.5-15.4)
[2022-02-15 15:35] LABS: BUN/Creatinine Ratio 15 (6-26); Blood Urea Nitrogen 9 mg/dL (6-20); Calcium 9.4 mg/dL (8.6-10.3); Carbon Dioxide 26 mEq/L (23-29); Chloride 95 mEq/L (98-107); Glucose 119 mg/dL (70-105); Magnesium 1.9 mg/dL (1.6-2.6); Osmolality,Calculated 278 (280-300); Potassium 3.5 mEq/L (3.5-5.1); Sodium 134 mEq/L (136-145); eGFR For African Americans > 60 (> 60); eGFR For Non-African Americans > 60 (> 60)
[2022-02-15] MEDS: rOPINIRole 1 MG TABLET PO SCH (19:46)
[2022-02-16] MEDS: *HR* OxyCODONE/APAP 5/325 TABLET PO PRN ×2 (02:33→07:56)
[2022-02-16] MEDS: *HR* OxyCODONE Immed Rel 5 MG TABLET PO PRN ×2 (04:57→11:00)
[2022-02-16] MEDS: *HR* Heparin 5,000 UNIT/ML VIAL SQ SCH (05:01)
[2022-02-16 05:25] LABS: Hematocrit 26.7 % (35.3-44.9); Hemoglobin 8.7 g/dL (11.5-15.4)
[2022-02-16 05:49] LABS: BUN/Creatinine Ratio 21 (6-26); Blood Urea Nitrogen 12 mg/dL (6-20); Calcium 9.3 mg/dL (8.6-10.3); Carbon Dioxide 28 mEq/L (23-29); Chloride 96 mEq/L (98-107); Glucose 118 mg/dL (70-105); Magnesium 2.1 mg/dL (1.6-2.6); Osmolality,Calculated 281 (280-300); Phosphorous 3.8 mg/dL (2.7-4.5); Potassium 3.6 mEq/L (3.5-5.1); Sodium 135 mEq/L (136-145); eGFR For African Americans > 60 (> 60); eGFR For Non-African Americans > 60 (> 60)
[2022-02-16 07:26] VITALS: TEMP 98
[2022-02-16 07:43] VITALS: O2SAT 94
[2022-02-16] MEDS: Chlorhexidine Rinse 15 ML MOUTHWASH MM SCH (07:45)
[2022-02-16] MEDS: Spironolactone 12.5 MG TABLET PO SCH (07:45)
[2022-02-16] MEDS: Insulin LISPRO 300 UNITS/3 ML VIAL SUBQ SCH ×2 (07:45→11:29)
[2022-02-16] MEDS: rOPINIRole 0.25 MG TABLET PO SCH (07:45)
[2022-02-16] MEDS: methocarbamoL 750 MG TABLET PO SCH ×2 (07:45→12:39)
[2022-02-16] MEDS: Metoprolol XL (24 HR) Succ 25 MG TAB.ER.24H PO SCH (07:46)
[2022-02-16] MEDS: lisinopriL 5 MG TABLET PO SCH (07:46)
[2022-02-16] MEDS: Furosemide 40 MG TABLET PO SCH (07:46)
[2022-02-16] MEDS: Gabapentin 300 MG CAPSULE PO SCH (07:46)
[2022-02-16] MEDS: Aspirin 81 MG TAB.CHEW PO SCH (07:46)
[2022-02-16] MEDS ORDERED: Folic Acid 1 MG TABLET PO SCH (09:00)
[2022-02-16 11:16] VITALS: BP 114/62; PULSE 72
== END 2022-02-16 15:15 | disposition home or self-care (01) | DRG 233 ==
LOC: 3NENU → SUATTDRO 08:08 → ICNU 02-09 18:13 → SUATTDRO 02-10 14:35 → 2NNU 02-14 16:28
PROVIDERS: ADMIT Internal Medicine; ATTEND Internal Medicine